=== PATIENT | male | born 1970 | race Caucasian/White ===

== ENCOUNTER 2022-03-20 07:48 | Emergency (ER) | payer OTHER ==
[~2022-03-20] VITALS: Ht 188 cm; Wt 90.4 kg
[2022-03-20 11:59] VITALS: BP 127/85
== END 2022-03-20 11:59 | disposition home or self-care (01) ==
LOC: ER 07:48
DX: S09.90XA Unspecified injury of head, initial encounter (principal); W01.198A Fall on same level from slipping, tripping and stumbling with subsequent striking against other object, initial encounter; Y93.89 Activity, other specified; Y92.89 Other specified places as the place of occurrence of the external cause; Y99.8 Other external cause status
CPT/HCPCS: 70450; 72125